=== PATIENT | female | born 1990 | race Caucasian/White ===

== ENCOUNTER 2017-03-29 09:48 | Inpatient (IN) | payer MEDICAID ==
[2017-03-30] MEDS ORDERED: MOTRIN800 MG PO (17:28)
[2017-03-30] MEDS ORDERED: COLACE100 MG PO (17:30)
== END 2017-03-30 19:13 | disposition short-term general hospital (02) | DRG 775 ==
LOC: LDROP 09:48 → LDRIP 10:01 → LDROP 13:45 → LDRIP 13:45
PROVIDERS: ADMIT Family Medicine
PROC: 10E0XZZ Delivery of Products of Conception, External Approach (ICD-10-PCS; principal; 2017-03-29)
PROC: 10907ZC Drainage of Amniotic Fluid, Therapeutic from Products of Conception, Via Natural or Artificial Opening (ICD-10-PCS; principal; 2017-03-29)
DX: O99.334 Smoking (tobacco) complicating childbirth (principal); Z3A.38 38 weeks gestation of pregnancy; Z37.0 Single live birth; O99.324 Drug use complicating childbirth; F15.90 Other stimulant use, unspecified, uncomplicated
CPT/HCPCS: A9150; J2310; J2370; J2590; J2790; J2795; J3010; J3490